=== PATIENT | male | born 1985 | race Caucasian/White ===

== ENCOUNTER 2021-11-16 17:20 | Emergency (ER) | payer SELFPAY ==
[~2021-11-16] VITALS: Ht 180 cm; Wt 95.0 kg
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
[2021-11-16] MEDS ORDERED: IOHEXOL 350 MG/ML 100 ML (OMNIPAQUE 350) VIAL IV ONE (17:45)
[2021-11-16] MEDS ORDERED: NS 100 ML (IVPB) BAG IV ONE (17:45)
[2021-11-16] MEDS ORDERED: HOLD METFORMIN - RECEIVED CONTRAST 20 ML VIAL IV SCH (17:45)
[2021-11-16] MEDS ORDERED: CATHETER FLUSH 10 ML SYR IV PRN (17:45)
[2021-11-16 17:52] LABS: BASOPHILS # (AUTO) 0.1 10^3/uL (0.0-0.1); BASOPHILS % (AUTO) 1 % (0-10); EOSINOPHILS # (AUTO) 0.1 10^3/uL (0.0-0.3); EOSINOPHILS % (AUTO) 1 % (0-10); HEMATOCRIT 47 % (40-54); HEMOGLOBIN 15.9 g/dL (13.3-17.7); LYMPHOCYTES # (AUTO) 3.3 10^3/uL (1.0-4.0); LYMPHOCYTES % (AUTO) 39 % (12-44); MEAN CORPUSCULAR HEMOGLOBIN 31 pg (25-34); MEAN CORPUSCULAR HGB CONC 34 g/dL (32-36); MEAN CORPUSCULAR VOLUME 92 fL (80-99); MEAN PLATELET VOLUME 11.1 fL (9.0-12.2); MONOCYTES # (AUTO) 0.9 10^3/uL (0.0-1.0); MONOCYTES % (AUTO) 10 % (0-12); NEUTROPHILS # (AUTO) 4.1 10^3/uL (1.8-7.8); NEUTROPHILS % (AUTO) 49 % (42-75); PLATELET COUNT 268 10^3/uL (130-400); WHITE BLOOD COUNT 8.5 10^3/uL (4.3-11.0)
[2021-11-16 18:19] LABS: ALANINE AMINOTRANSFERASE 36 U/L (0-55); ALBUMIN 5.2 GM/DL (3.2-4.5); ALKALINE PHOSPHATASE 110 U/L (40-136); BILIRUBIN,TOTAL 0.5 MG/DL (0.1-1.0); BUN/CREATININE RATIO 12; CALCIUM 9.9 MG/DL (8.5-10.1); CARBON DIOXIDE 22 MMOL/L (21-32); CHLORIDE 105 MMOL/L (98-107); CREATININE SERUM 1.14 MG/DL (0.60-1.30); GFR ESTIMATED 86; GLUCOSE 111 MG/DL (70-105); POTASSIUM 3.5 MMOL/L (3.6-5.0); SODIUM 145 MMOL/L (135-145)
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
[2021-11-16 18:33] VITALS: BP 122/76
[2021-11-16] MEDS ORDERED: CEPH500T PO (18:53)
[2021-11-16] MEDS ORDERED: ACHD5005 PO (18:53)
== END 2021-11-16 18:55 | disposition home or self-care (01) ==
LOC: EDUNIT# 17:20 → ER FS 17:21
DX: S31.119A Laceration without foreign body of abdominal wall, unspecified quadrant without penetration into peritoneal cavity, initial encounter (principal); S21.112A Laceration without foreign body of left front wall of thorax without penetration into thoracic cavity, initial encounter; S61.412A Laceration without foreign body of left hand, initial encounter; Z72.0 Tobacco use; Z28.310 Unvaccinated for COVID-19; Y04.0XXA Assault by unarmed brawl or fight, initial encounter; Y92.009 Unspecified place in unspecified non-institutional (private) residence as the place of occurrence of the external cause
CPT/HCPCS: 12002; 12042; 36415; 71260; 74160; 80053; 85025; Q9967

== ENCOUNTER 2021-11-26 02:41 | Emergency (ER) | payer SELFPAY ==
[~2021-11-26] VITALS: Ht 180 cm; Wt 97.5 kg
[~2021-11-26 02:41] MED LIST: ACHD5005 PO; CEPH500T PO
[2021-11-26 02:45] VITALS: BP 125/91
[2021-11-26] MEDS ORDERED: KETOROLAC 30 MG/ML VIAL IM STA (02:49)
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
[2021-11-26] MEDS ORDERED: ORPHENADRINE 60 MG/2 ML (NORFLEX) AMP (ED ONLY) IM STA (03:16)
[2021-11-26] MEDS ORDERED: CYCL10TA25 PO (03:25)
[2021-11-26] MEDS ORDERED: IBUP-1780 PO (03:25)
[2021-11-26] MEDS ORDERED: ACHD5005 PO (03:25)
--- NOTE | 2021-11-26 06:23 | Diagnostic Imaging Report ---
EXAMINATION: Chest 2 view HISTORY: chest wall pain COMPARISON: 11/16/2021 FINDINGS: Heart size and pulmonary vasculature are normal. The lungs are clear without consolidation, pleural effusion, or pneumothorax. There is a mildly displaced fracture of the lateral left 5th rib. IMPRESSION: 1. Mildly displaced fracture of the lateral left 5th rib. Dictated by: Dictated on workstation # [id number]
== END 2021-11-26 03:30 | disposition home or self-care (01) ==
LOC: EDUNIT# 02:41 → ER FS 02:44
DX: S22.32XA Fracture of one rib, left side, initial encounter for closed fracture (principal); Z87.828 Personal history of other (healed) physical injury and trauma; Z28.310 Unvaccinated for COVID-19; X58.XXXA Exposure to other specified factors, initial encounter
CPT/HCPCS: 71046

== ENCOUNTER 2022-01-03 17:52 | Emergency (ER) | payer SELFPAY ==
[~2022-01-03] VITALS: Ht 180 cm; Wt 97.5 kg
[~2022-01-03 17:52] MED LIST changes: +CYCL10TA25 PO; +IBUP-1780 PO
--- NOTE | 2022-01-03 17:59 | ED Psychosocial ---
General Stated Complaint: SUBSTANCE ABUSE History of Present Illness Date Seen by Provider: Jan 03, 2022 Time Seen by Provider: 17:59 Initial Comments 36-year-old male brought in due to unknown substance abuse. Patient been out rolling around in the yard just acting very abnormal. Patient is suspected to have used meth, PCP and alcohol. It is unsure how much of any of it or felt exactly what is used. Patient does have a history of substance abuse. Patient's family reports that they believe that is what he is taking. Patient was brought in by EMS where he received 400 of IV ketamine. Patient still alert and interactive but not acting out as much. No other history is available at this time. Allergies and Home Medications Allergies Coded Allergies: No Known Drug Allergies (Unverified , 11/16/21) Patient Home Medication List Home Medication List Reviewed: Yes Cephalexin (Cephalexin) 500 Mg Tablet, 500 MG PO BID Prescribed by: EMI JESUS MD on 11/16/211852 Cyclobenzaprine HCl (Cyclobenzaprine HCl) 10 Mg Tablet, 10 MG PO Q8H PRN for SPASMS Prescribed by: REDD FRITZ on 11/26/21 032 Hydrocodone/Acetaminophen (Hydrocodone-Acetamin 5-325 mg) 5 Mg-325 Mg Tablet, 1 TAB PO Q6H PRN for PAIN-MODERATE (5-7) Prescribed by: EMI JESUS MD on 11/16/211853 Hydrocodone/Acetaminophen (Hydrocodone-Acetamin 5-325 mg) 5 Mg-325 Mg Tablet, 1 TAB PO Q12H PRN for PAIN-MODERATE (5-7) Prescribed by: REDD FRITZ on 11/26/21325 Ibuprofen (Ibuprofen) 800 Mg Tablet, 800 MG PO Q8H PRN for PAIN Prescribed by: REDD FRITZ on 11/26/21 0325 Review of Systems ROS-Unable to Obtain: Unable to obtain due to mental status Constitutional: see HPI Psychiatric/Neurological: See HPI Past Frthviv-Ywroee-Hotbaf Hx Immunizations Up To Date First/Initial COVID19 Vaccinat: NO Second COVID19 Vaccination Issac: NO Third COVID19 Vaccination Date: NO Seasonal Allergies Seasonal Allergies: No Past Medical History Surgeries: No Family Medical History No Pertinent Family Hx Physical Exam Vital Signs - First Documented 01/03/22 18:05 Temp 37.5 Pulse 157 Resp 22 B/P (MAP) 105/80 (88) Pulse Ox 97 O2 Delivery Room Air Capillary Refill : Height, Weight, BMI Height: '" Weight: lbs. oz. kg; 30.00 BMI Method: General Appearance: other (Unkept, obviously higher when intoxicated, kind of mumbles but does not really say much) Respiratory: lungs clear, normal breath sounds Cardiovascular: normal peripheral pulses, regular rate, rhythm Gastrointestinal: soft; No distended Extremities: normal range of motion Neurologic/Psychiatric: disoriented x 3 Appearance/Memory: disheveled Skin: normal color, warm/dry Procedures/Interventions Suture Size: 2-0, 4-0 Progress/Results/Core Measures Results/Orders Lab Results Laboratory Tests Test 01/03/22 18:04 01/03/22 19:25 Range/Units White Blood Count 23.3 H 4.3-11.0 10^3/uL Red Blood Count 4.94 4.30-5.52 10^6/uL Hemoglobin 15.5 13.3-17.7 g/dL Hematocrit 46 40-54 % Mean Corpuscular Volume 93 80-99 fL Mean Corpuscular Hemoglobin 31 25-34 pg Mean Corpuscular Hemoglobin Concent 34 32-36 g/dL Red Cell Distribution Width 13.2 10.0-14.5 % Platelet Count 316 130-400 10^3/uL Mean Platelet Volume 11.8 9.0-12.2 fL Immature Granulocyte % (Auto) 1 % Neutrophils (%) (Auto) 85 H 42-75 % Lymphocytes (%) (Auto) 6 L 12-44 % Monocytes (%) (Auto) 9 0-12 % Eosinophils (%) (Auto) 0 0-10 % Basophils (%) (Auto) 1 0-10 % Neutrophils # (Auto) 19.7 H 1.8-7.8 10^3/uL Lymphocytes # (Auto) 1.4 1.0-4.0 10^3/uL Monocytes # (Auto) 2.0 H 0.0-1.0 10^3/uL Eosinophils # (Auto) 0.0 0.0-0.3 10^3/uL Basophils # (Auto) 0.1 0.0-0.1 10^3/uL Immature Granulocyte # (Auto) 0.1 0.0-0.1 10^3/uL Neutrophils % (Manual) 89 % Lymphocytes % (Manual) 7 % Monocytes % (Manual) 4 % Eosinophils % (Manual) 0 % Basophils % (Manual) 0 % Band Neutrophils 0 % Sodium Level 153 H 151 H 135-145 MMOL/L Potassium Level 3.9 4.1 3.6-5.0 MMOL/L Chloride Level 111 H 115 H 98-107 MMOL/L Carbon Dioxide Level 18 L 17 L 21-32 MMOL/L Anion Gap 24 H 19 H 5-14 MMOL/L Blood Urea Nitrogen 20 H 22 H 7-18 MG/DL Creatinine 2.46 H 2.31 H 0.60-1.30 MG/DL Estimat Glomerular Filtration Rate 34 37 BUN/Creatinine Ratio 8 10 Glucose Level 90 81 70-105 MG/DL Calcium Level 10.8 H 9.1 8.5-10.1 MG/DL Corrected Calcium 8.5-10.1 MG/DL Total Bilirubin 1.3 H 0.1-1.0 MG/DL Aspartate Amino Transf (AST/SGOT) 62 H 5-34 U/L Alanine Aminotransferase (ALT/SGPT) 53 0-55 U/L Alkaline Phosphatase 119 40-136 U/L Total Protein 8.9 H 6.4-8.2 GM/DL Albumin 5.6 H 3.2-4.5 GM/DL Serum Alcohol < 10 <10 MG/DL My Orders Orders - LAMREDD L DO Alcohol (01/03/22 18:01) Cbc With Automated Diff (01/03/22 18:01) Comprehensive Metabolic Panel (01/03/22 18:01) Drug Screen Stat (Urine) (01/03/22 18:01) Ua Culture If Indicated (01/03/22 18:01) Ns Iv 1000 Ml (Sodium Chloride 0.9%) (01/03/22 18:05) Midazolam Injection (Versed Injection) (01/03/22 18:15) Manual Differential (01/03/22 18:04) Ns Iv 1000 Ml (Sodium Chloride 0.9%) (01/03/22 18:51) Ns Iv 1000 Ml (Sodium Chloride 0.9%) (01/03/22 18:53) Basic Metabolic Panel (01/03/22 19:17) Midazolam Injection (Versed Injection) (01/03/22 19:45) Lactated Ringers (Lr 1000 Ml Iv Solution (01/03/22 20:04) Diphenhydramine Injection (Benadryl Inje (01/03/22 20:04) Haloperidol Injection (Haldol Injectio (01/03/22 20:30) Lactated Ringers (Lr 1000 Ml Iv Solution (01/03/22 20:53) Medications Given in ED Current Medications Medications Dose Ordered Sig/Lena Route Start Time Stop Time Status Last Admin Dose Admin Haloperidol Lactate 2.5 mg ONCE ONCE IV 01/03/22 20:30 01/03/22 20:31 DC 01/03/22 20:33 2.5 MG Midazolam HCl 2 mg ONCE ONCE IVP 01/03/22 18:15 01/03/22 18:16 DC 01/03/22 19:05 2 MG Midazolam HCl 3 mg ONCE ONCE IVP 01/03/22 19:45 01/03/22 19:46 DC 01/03/22 19:43 3 MG Sodium Chloride 1,000 ml @ ud STK-MED ONCE .ROUTE 01/03/22 18:05 01/03/22 18:07 DC 01/03/22 18:18 1,000 MLS/HR Sodium Chloride 1,000 ml @ ud STK-MED ONCE .ROUTE 01/03/22 18:53 01/03/22 18:55 DC 01/03/22 19:05 1,000 MLS/HR Vital Signs/I&O 01/03/22 01/03/22 18:05 22:09 Temp 37.5 Pulse 157 101 Resp 22 18 B/P (MAP) 105/80 (88) 123/72 Pulse Ox 97 98 O2 Delivery Room Air Room Air 01/04/22 00:00 Intake Total 4000 ml Balance 4000 ml Progress Progress Note : Progress Note Patient belligerent and obviously high in acute intoxication suspect meth probably PCP. Patient is requesting go home. He does answer most questions appropriately. Patient appears to have a strong support system of family here who agrees to allow him to come home with them. 2202 patient became very agitated about time we initially went to go home. He did receive 50 of Benadryl and 2-1/2 mg of Haldol. Patient calm down appropriately. He actually ended up sleeping for a while. After he awoke he was much more reasonable however he did report that he is "going home did not want any further labs or work-up. He understands the risk and is was unable to be convinced to stay for further treatment. At this time he was not being inappropriate so further medication was not indicated. Patient was allowed to leave. We did inform his family who will be coming to pick him up. Departure Impression Primary Impression: Acute drug intoxication Qualified Codes: F19.921 - Other psychoactive substance use, unspecified with intoxication with delirium Disposition: 01 HOME, SELF-CARE Condition: Stable Departure-Patient Inst. Referrals: NO,LOCAL PHYSICIAN (PCP/Family) Primary Care Physician Patient Instructions: Drug Abuse and Drug Addiction (DC) Add. Discharge Instructions: Please go home and get some rest. Return to ER with any concerns REDD FRITZ DO Jan 03, 2022 17:59
[2022-01-03] MEDS ORDERED: NS IV 1000 ML 1,000 ML ONE ×2 (18:05→18:53)
[2022-01-03] MEDS ORDERED: MIDAZOLAM 2 MG/2 ML (VERSED) VIAL IVP ONE (18:15)
[2022-01-03 18:33] LABS: ALANINE AMINOTRANSFERASE 53 U/L (0-55); ALKALINE PHOSPHATASE 119 U/L (40-136); BILIRUBIN,TOTAL 1.3 MG/DL (0.1-1.0); BUN/CREATININE RATIO 8; CALCIUM 10.8 MG/DL (8.5-10.1); CARBON DIOXIDE 18 MMOL/L (21-32); CHLORIDE 111 MMOL/L (98-107); CREATININE SERUM 2.46 MG/DL (0.60-1.30); GFR ESTIMATED 34; GLUCOSE 90 MG/DL (70-105); POTASSIUM 3.9 MMOL/L (3.6-5.0); SODIUM 153 MMOL/L (135-145); TOTAL PROTEIN 8.9 GM/DL (6.4-8.2)
[2022-01-03 18:34] LABS: ALBUMIN 5.6 GM/DL (3.2-4.5)
[2022-01-03 18:37] LABS: BASOPHILS # (AUTO) 0.1 10^3/uL (0.0-0.1); BASOPHILS % (AUTO) 1 % (0-10); EOSINOPHILS % (AUTO) 0 % (0-10); HEMATOCRIT 46 % (40-54); HEMOGLOBIN 15.5 g/dL (13.3-17.7); LYMPHOCYTES # (AUTO) 1.4 10^3/uL (1.0-4.0); LYMPHOCYTES % (AUTO) 6 % (12-44); MEAN CORPUSCULAR HEMOGLOBIN 31 pg (25-34); MEAN CORPUSCULAR HGB CONC 34 g/dL (32-36); MEAN CORPUSCULAR VOLUME 93 fL (80-99); MEAN PLATELET VOLUME 11.8 fL (9.0-12.2); MONOCYTES % (AUTO) 9 % (0-12); NEUTROPHILS # (AUTO) 19.7 10^3/uL (1.8-7.8); NEUTROPHILS % (AUTO) 85 % (42-75); PLATELET COUNT 316 10^3/uL (130-400); WHITE BLOOD COUNT 23.3 10^3/uL (4.3-11.0)
[2022-01-03] MEDS ORDERED: NS IV 1000 ML 1,000 ML IV STA (18:51)
[2022-01-03 18:57] LABS: BAND NEUTROPHILS 0 %; BASOPHILS % (MANUAL) 0 %; EOSINOPHILS % (MANUAL) 0 %; LYMPHOCYTES % (MANUAL) 7 %; MONOCYTES % (MANUAL) 4 %; NEUTROPHILS % (MANUAL) 89 %
[2022-01-03] MEDS ORDERED: MIDAZOLAM 5 MG/5 ML (VERSED) VIAL IVP ONE (19:45)
[2022-01-03 19:58] LABS: POTASSIUM 4.1 MMOL/L (3.6-5.0)
[2022-01-03 19:59] LABS: CALCIUM 9.1 MG/DL (8.5-10.1); CREATININE SERUM 2.31 MG/DL (0.60-1.30)
[2022-01-03] MEDS ORDERED: LACTATED RINGERS 1,000 ML IV STA ×2 (20:04→20:53)
[2022-01-03] MEDS ORDERED: diphenhydrAMINE 50 MG/ML INJ (BENADRYL) IV STA (20:04)
[2022-01-03] MEDS ORDERED: HALOPERIDOL 5 MG/ML (HALDOL) VIAL IV ONE (20:30)
[2022-01-03 22:09] VITALS: BP 123/72
== END 2022-01-03 22:10 | disposition home or self-care (01) ==
LOC: EDUNIT# 17:52 → ER FS 17:53
DX: F19.129 Other psychoactive substance abuse with intoxication, unspecified (principal); Z28.310 Unvaccinated for COVID-19
CPT/HCPCS: 36415; 80048; 80053; 85007; 85027; 99284; G0480; 80320